=== PATIENT | female | born 1960 | race Caucasian/White ===

== ENCOUNTER 2020-06-21 00:12 | Inpatient (IN) | payer BC ==
[~2020-06-21] VITALS: Ht 167.6 cm; Wt 52.0 kg
[2020-06-21] MEDS ORDERED: DEXTROSE 50%, 50ML SYRINGE ONE (00:27)
[2020-06-21] MEDS ORDERED: DEXTROSE 50%, 50ML SYRINGE IVPush ONE (00:30)
[2020-06-21] MEDS ORDERED: SODIUM CHLORIDE 0.9% 1,000ML IVBOLUS ONE (00:30)
--- NOTE | 2020-06-21 00:55 | NUR ---
PATIENT CAME IN VIA EMS. PATIENT FROM [facility] HAVING INCREASED AMS, PER FAMILY, PATIENT HAVING TREMORS. [facility] DID CT W/O CONTRAST AND SHOWED NO HEMMORAGIC STROKE. PATIENT GIVEN ATIVAN IN [facility] WITH LITTLE EFFECT, GIVEN VERSED IN AMBULANCE AND EMS STATED IT WORKED BETTER. PATIENT HAS [facility] FROM [facility], AND LABS THAT WERE DONE WELL. BLOOD GLUCOSE DONE HERE AND PATIENT WAS GIVEN 1 AMP OF D50 FOR GLUCOSE OF 67. PATIENT ABLE TO STATE NAME AND THAT SHE IS IN HOSPITAL BUT NOT MUCH ELSE. PATIENT COUGHING AND WAS SUCTIONED X 1. PATIENT ON ALL MONITORS, SEIZURE PRECAUTIONS IN PLACE MEDICATED PER [facility], AND LABS CURRENTLY BEING DRAWN. WILL CLOSELY MONITOR
[2020-06-21 01:18] LABS: ANION GAP 13 mmol/L (5-15); CHLORIDE 84 mmol/L (98-107)
[2020-06-21 01:26] LABS: TROPONIN I 0.521 ng/mL (0.000-0.045)
[2020-06-21 01:28] LABS: BASOPHILS # (AUTO) 0.02 x10^3/uL (0-0.1); BASOPHILS % (AUTO) 0 % (0-1); EOSINOPHILS % (AUTO) 0 % (1-7); LYMPHOCYTES # (AUTO) 0.71 x10^3/uL (1-3.4); LYMPHOCYTES % (AUTO) 12 % (22-44); MD SCAN; MEAN CORPUSCULAR HEMOGLOBIN 30.8 pg (27.0-34.8); MEAN CORPUSCULAR HGB CONC 32.5 g/dL (32.4-35.8); MEAN CORPUSCULAR VOLUME 94.8 fL (80-100); MEAN PLATELET VOLUME 10.2 fL (7.4-10.4); MONOCYTES # (AUTO) 0.52 x10^3/uL (0.2-0.8); MONOCYTES % (AUTO) 9 % (2-9); NEUTROPHILS # (AUTO) 4.67 x10^3/uL (1.8-6.8); NEUTROPHILS % (AUTO) 79 % (42-75); PLATELET COUNT 104 x10^3/uL (130-400); RED BLOOD COUNT 4.24 x10^6/uL (3.82-5.3)
[2020-06-21] MEDS ORDERED: POTASSIUM CHLORIDE 20 MEQ TAB.ER.PRT PO ONE ×2 (02:00→13:00)
[2020-06-21] MEDS ORDERED: POTASSIUM CHLORIDE 40 MEQ in SODIUM CHLORIDE 0.9% 500 ML IV ONE (02:00)
[2020-06-21] MEDS ORDERED: PLEASE ENTER ALLERGIES MC SCH (02:00)
--- NOTE | 2020-06-21 02:28 | NUR ---
FSBS 94; VS UPDATED. PT. REMAINS A&O X 2(SELF AND PLACE). PT. HAS IVF + K INFUSING PER ORDER. COVID SWAB COMPLETED AND WALKED TO LAB.
[2020-06-21] MEDS ORDERED: POTASSIUM CHLORIDE 20 MEQ TAB.ER.PRT ONE (02:33)
--- NOTE | 2020-06-21 02:42 | NUR ---
SWALLOW EVAL COMPLETED. PT. WAS ABLE TO PASS WITH RN HELPING TO HOLD CUP R/T SHAKING AND VERBAL COACHING. MEDICATED WITH PO K-DUR PER MAR WITH APPLESAUCE AND VERBAL COACHING. PT. TOLERATED WELL.
--- NOTE | 2020-06-21 02:52 | NUR ---
DAUGHTER CALLED AND UPDATED ON PATIENT'S CONDITION.
[2020-06-21] MEDS ORDERED: THIAMINE 100MG TABLET PO ONE (03:30)
[2020-06-21] MEDS ORDERED: ACETAMINOPHEN 325 MG TABLET PO PRN (03:30)
[2020-06-21] MEDS ORDERED: THIAMINE 200 MG in SODIUM CHLORIDE 0.9% 50 ML IV ONE (03:30)
[2020-06-21] MEDS ORDERED: hydrALAzine 20 MG/ML, 1ML IVPush PRN (03:30)
[2020-06-21] MEDS ORDERED: DOCUSATE 100 MG CAPSULE PO PRN (03:30)
[2020-06-21] MEDS ORDERED: ONDANSETRON 2MG/ML, 2ML IVPush PRN (03:30)
[2020-06-21] MEDS ORDERED: GUAIFENESIN/DM 200-20MG, 10ML UDC PO PRN (03:30)
[2020-06-21] MEDS ORDERED: NICOTINE 14MG/24 HR PATCH.TD24 TD ONE (03:30)
[2020-06-21] MEDS ORDERED: POTASSIUM CHLORIDE 20 MEQ in DEXTROSE 5% 1,000 ML IV SCH (03:30)
--- NOTE | 2020-06-21 03:32 | NUR ---
MED REQUEST SENT TO PHARMACY. 2,400 ML OF CLEAR, YELLOW URINE EMPTIED FROM [facility].
[2020-06-21] MEDS ORDERED: NICOTINE 14MG/24 HR PATCH.TD24 ONE (03:51)
[2020-06-21] MEDS ORDERED: ENOXAPARIN 40 MG/0.4 ML ONE (03:51)
[2020-06-21] MEDS ORDERED: THIAMINE 100MG TABLET ONE (03:52)
[2020-06-21] MEDS: ENOXAPARIN 40 MG/0.4 ML SQ SCH (03:59)
[2020-06-21] MEDS ORDERED: LORazepam 2 MG/ML, 1ML IV PRN ×4 (04:00)
--- NOTE | 2020-06-21 04:14 | NUR ---
FIRST ATTEMPT TO CALL REPORT AT [phone]
[2020-06-21] MEDS ORDERED: LEVE100020 PO (04:25)
[2020-06-21] MEDS ORDERED: ASPI-496 PO (04:25)
--- NOTE | 2020-06-21 04:26 | NUR ---
REPORT CALLED TO AUGUSTA @ [phone]. ALL QUESTIONS ANSWERED
[2020-06-21 04:55] LABS: MEAN CORPUSCULAR HEMOGLOBIN 30.9 pg (27.0-34.8); MEAN CORPUSCULAR HGB CONC 32.7 g/dL (32.4-35.8); MEAN CORPUSCULAR VOLUME 94.4 fL (80-100); MEAN PLATELET VOLUME 10.1 fL (7.4-10.4); PLATELET COUNT 102 x10^3/uL (130-400); RED CELL DISTRIBUTION WIDTH 13.1 % (9.6-15.2)
[2020-06-21 04:57] LABS: ALANINE AMINOTRANSFERASE 53 U/L (12-78); ALBUMIN 3.7 g/dL (3.4-5.0); ANION GAP 10 mmol/L (5-15); CALCIUM 8.5 mg/dL (8.5-10.1); CHLORIDE 91 mmol/L (98-107); CREATININE 0.37 mg/dL (0.55-1.02)
[2020-06-21 05:00] VITALS: BP 89/60
[2020-06-21 05:01] LABS: ALKALINE PHOSPHATASE 39 U/L (45-117); BILIRUBIN,TOTAL 1.3 mg/dL (0.2-1.0); TOTAL PROTEIN 5.7 g/dL (6.4-8.2); TROPONIN I 0.367 ng/mL (0.000-0.045)
[2020-06-21 05:28] LABS: HCT (SEDRATE) 36.8 % (34.6-47.8)
[2020-06-21 06:31] LABS: BASOPHILS # (AUTO) 0.01 x10^3/uL (0-0.1); BASOPHILS % (AUTO) 0 % (0-1); EOSINOPHILS % (AUTO) 0 % (1-7); LYMPHOCYTES # (AUTO) 0.85 x10^3/uL (1-3.4); LYMPHOCYTES % (AUTO) 15 % (22-44); MD SCAN; MONOCYTES # (AUTO) 0.58 x10^3/uL (0.2-0.8); MONOCYTES % (AUTO) 10 % (2-9); NEUTROPHILS # (AUTO) 4.31 x10^3/uL (1.8-6.8); NEUTROPHILS % (AUTO) 75 % (42-75)
[2020-06-21] MEDS ORDERED: LORazepam 2 MG/ML, 1ML IVPush PRN (07:30)
[2020-06-21] MEDS ORDERED: POTASSIUM CHLORIDE 20 MEQ, MAGNESIUM SULFATE 1 GM, MVI ADULT 10 ML, THIAMINE 200 MG, FO... IV SCH (07:30)
[2020-06-21] MEDS: ASPIRIN 325 MG TABLET PO SCH (08:20)
[2020-06-21] MEDS: CHLORDIAZEPOXIDE 25 MG CAPSULE PO SCH ×3 (08:21→20:35)
[2020-06-21] MEDS: POTASSIUM CHLORIDE 20 MEQ TAB.ER.PRT PO SCH ×2 (08:21→16:49)
[2020-06-21 08:45] LABS: CHLORIDE,URINE RANDOM 66 mmol/L; POTASSIUM,URINE RANDOM 22 mmol/L; SODIUM,URINE RANDOM 43 mmol/L
[2020-06-21] MEDS ORDERED: MULTIVITAMIN 1 TABLET PO SCH (09:00)
[2020-06-21] MEDS ORDERED: FOLIC ACID 1 MG TABLET PO SCH (09:00)
[2020-06-21] MEDS ORDERED: MAGNESIUM SULFATE PMX 4GM/100M 100 ML IV ONE (09:00)
[2020-06-21 10:47] VITALS: BP 91/62
[2020-06-21 12:31] LABS: ANION GAP 10 mmol/L (5-15); CALCIUM 8.3 mg/dL (8.5-10.1); CHLORIDE 92 mmol/L (98-107); CREATININE 0.38 mg/dL (0.55-1.02)
[2020-06-21 14:35] VITALS: BP 102/70
[2020-06-21 18:25] VITALS: BP 95/62
[2020-06-21] MEDS: ATORVASTATIN 40 MG TABLET PO SCH (20:35)
[2020-06-22] VITALS (8 sets, daily range): BP systolic 78–161; BP diastolic 48–74
[2020-06-22] MEDS: ASPIRIN 325 MG TABLET PO SCH (05:23)
[2020-06-22] MEDS: ENOXAPARIN 40 MG/0.4 ML SQ SCH (05:23)
[2020-06-22 05:26] LABS: ANION GAP 9 mmol/L (5-15); CALCIUM 7.4 mg/dL (8.5-10.1); CHLORIDE 96 mmol/L (98-107)
[2020-06-22 05:29] LABS: CHOL/HDL RATIO 2.2; CHOLESTEROL, TOTAL 182 mg/dL (140-239); CREATININE 0.31 mg/dL (0.55-1.02); HDL CHOL % 45 % (28-40); HDL CHOLESTEROL (DIRECT) 82 mg/dL (40-60); LDL CHOLESTEROL,CALCULATED 82 mg/dL (54-169); TRIGLYCERIDES 88 mg/dL (50-200); VLDL CHOLESTEROL 18 mg/dL (0-25)
[2020-06-22] MEDS ORDERED: POTASSIUM PHOSPHATE 44 MEQ in SODIUM CHLORIDE 0.9% 500 ML IV ONE (08:00)
[2020-06-22] MEDS ORDERED: POTASSIUM CHLORIDE 40 MEQ in SODIUM CHLORIDE 0.9% 500 ML IV ONE (08:00)
[2020-06-22 08:58] LABS: TROPONIN I 0.116 ng/mL (0.000-0.045)
[2020-06-22] MEDS: FOLIC ACID 1 MG TABLET PO SCH (09:54)
[2020-06-22] MEDS: POTASSIUM CHLORIDE 20 MEQ TAB.ER.PRT PO SCH ×2 (09:54→17:58)
[2020-06-22] MEDS: MULTIVITAMINS/MINERALS TABLET PO SCH (09:54)
[2020-06-22] MEDS: LEVETIRACETAM 500 MG TABLET PO SCH ×2 (09:54→20:16)
[2020-06-22] MEDS: THIAMINE 100MG TABLET PO SCH ×2 (09:54→20:17)
[2020-06-22] MEDS: CALCIUM CARBONATE 500 MG TABLET PO SCH ×2 (13:56→20:16)
[2020-06-22] MEDS ORDERED: SODIUM CHLORIDE 0.9% 1,000ML IVBOLUS ONE (14:00)
[2020-06-22 14:43] LABS: BASOPHILS # (AUTO) 0.01 x10^3/uL (0-0.1); BASOPHILS % (AUTO) 0 % (0-1); EOSINOPHILS # (AUTO) 0.04 x10^3/uL (0-0.4); EOSINOPHILS % (AUTO) 1 % (1-7); LYMPHOCYTES # (AUTO) 0.95 x10^3/uL (1-3.4); LYMPHOCYTES % (AUTO) 19 % (22-44); MD NO; MEAN CORPUSCULAR HEMOGLOBIN 31.9 pg (27.0-34.8); MEAN CORPUSCULAR HGB CONC 34.2 g/dL (32.4-35.8); MEAN CORPUSCULAR VOLUME 93.2 fL (80-100); MEAN PLATELET VOLUME 9.9 fL (7.4-10.4); MONOCYTES # (AUTO) 0.59 x10^3/uL (0.2-0.8); MONOCYTES % (AUTO) 12 % (2-9); NEUTROPHILS % (AUTO) 68 % (42-75); PLATELET COUNT 103 x10^3/uL (130-400); RED BLOOD COUNT 3.56 x10^6/uL (3.82-5.3); RED CELL DISTRIBUTION WIDTH 13.8 % (9.6-15.2)
[2020-06-22 14:46] LABS: ALBUMIN 3.4 g/dL (3.4-5.0); ANION GAP 5 mmol/L (5-15); CALCIUM 8.1 mg/dL (8.5-10.1); CHLORIDE 99 mmol/L (98-107)
[2020-06-22 14:49] LABS: ALANINE AMINOTRANSFERASE 53 U/L (12-78); ALKALINE PHOSPHATASE 35 U/L (45-117); BILIRUBIN,TOTAL 0.6 mg/dL (0.2-1.0); CREATININE 0.52 mg/dL (0.55-1.02); TOTAL PROTEIN 5.3 g/dL (6.4-8.2)
[2020-06-22] MEDS ORDERED: LORazepam 0.5MG TABLET PO PRN (15:30)
[2020-06-22] MEDS: ATORVASTATIN 40 MG TABLET PO SCH (20:16)
[2020-06-23 01:16] VITALS: BP 112/72
[2020-06-23] MEDS: ASPIRIN 325 MG TABLET PO SCH (06:06)
[2020-06-23] MEDS: ENOXAPARIN 40 MG/0.4 ML SQ SCH (06:06)
[2020-06-23 06:22] LABS: BASOPHILS # (AUTO) 0.02 x10^3/uL (0-0.1); BASOPHILS % (AUTO) 0 % (0-1); EOSINOPHILS # (AUTO) 0.06 x10^3/uL (0-0.4); EOSINOPHILS % (AUTO) 1 % (1-7); LYMPHOCYTES # (AUTO) 1.37 x10^3/uL (1-3.4); LYMPHOCYTES % (AUTO) 33 % (22-44); MD NO; MEAN CORPUSCULAR HEMOGLOBIN 31.4 pg (27.0-34.8); MEAN CORPUSCULAR HGB CONC 33.3 g/dL (32.4-35.8); MEAN CORPUSCULAR VOLUME 94.5 fL (80-100); MEAN PLATELET VOLUME 10.2 fL (7.4-10.4); MONOCYTES # (AUTO) 0.55 x10^3/uL (0.2-0.8); MONOCYTES % (AUTO) 13 % (2-9); NEUTROPHILS % (AUTO) 52 % (42-75); PLATELET COUNT 107 x10^3/uL (130-400); RED BLOOD COUNT 3.71 x10^6/uL (3.82-5.3); RED CELL DISTRIBUTION WIDTH 13.9 % (9.6-15.2)
[2020-06-23 06:26] LABS: CHLORIDE 103 mmol/L (98-107)
[2020-06-23 06:33] LABS: ALANINE AMINOTRANSFERASE 57 U/L (12-78); ALBUMIN 3.7 g/dL (3.4-5.0); ALKALINE PHOSPHATASE 28 U/L (45-117); ANION GAP 6 mmol/L (5-15); BILIRUBIN,TOTAL 0.7 mg/dL (0.2-1.0); CALCIUM 8.7 mg/dL (8.5-10.1); CREATININE 0.32 mg/dL (0.55-1.02); TOTAL PROTEIN 5.5 g/dL (6.4-8.2)
[2020-06-23 06:56] VITALS: BP 103/71
[2020-06-23] MEDS: FOLIC ACID 1 MG TABLET PO SCH (08:07)
[2020-06-23] MEDS: CALCIUM CARBONATE 500 MG TABLET PO SCH (08:07)
[2020-06-23] MEDS: MULTIVITAMINS/MINERALS TABLET PO SCH (08:07)
[2020-06-23] MEDS: LEVETIRACETAM 500 MG TABLET PO SCH (08:07)
[2020-06-23] MEDS: POTASSIUM CHLORIDE 20 MEQ TAB.ER.PRT PO SCH (08:08)
[2020-06-23] MEDS: THIAMINE 100MG TABLET PO SCH (08:18)
[2020-06-23] MEDS ORDERED: MAGNESIUM OXIDE 400 MG TABLET PO SCH (09:00)
[2020-06-23] MEDS ORDERED: MULT-484 PO (12:21)
[2020-06-23] MEDS ORDERED: FOLI-17 PO (12:21)
[2020-06-23] MEDS ORDERED: MAGN400T50 PO (12:21)
[2020-06-23] MEDS ORDERED: THIA100T67 PO (12:21)
[2020-06-23 12:57] VITALS: BP 111/76
== END 2020-06-23 14:29 | disposition home or self-care (01) | DRG 100 ==
LOC: ED 02:56 → EDIP 03:00 → ICU 04:44 → 4EST 14:31
PROVIDERS: ADMIT Hospitalist; ATTEND Internal Medicine
DX: G40.909 Epilepsy, unspecified, not intractable, without status epilepticus (principal); G93.41 Metabolic encephalopathy; E87.1 Hypo-osmolality and hyponatremia; I24.8 Other forms of acute ischemic heart disease; D63.8 Anemia in other chronic diseases classified elsewhere; E83.39 Other disorders of phosphorus metabolism; E83.42 Hypomagnesemia; E83.51 Hypocalcemia; E87.6 Hypokalemia; F10.10 Alcohol abuse, uncomplicated; F17.210 Nicotine dependence, cigarettes, uncomplicated; I95.9 Hypotension, unspecified; L89.151 Pressure ulcer of sacral region, stage 1; Z03.818 Encounter for observation for suspected exposure to other biological agents ruled out; Z91.14 Patient's other noncompliance with medication regimen
CPT/HCPCS: 36415; 71045; 80048; 80053; 80061; 80307; 82040; 82140; 82436; 82570; 82962; 83036; 83605; 83735; 84100; 84133; 84300; 84443; 84484; 85025; 85651; 87040; 87081; 87635; 93005; 93306; G0378; J1650; J3411; J3475; J3480; J7070; J2060; J7030; J7040